=== PATIENT | female | born 1950 | race Asian ===

== ENCOUNTER 2016-09-01 13:01 | Inpatient (IN) | payer MEDICAID ==
[~2016-09-01] VITALS: Ht 157.5 cm; Wt 58.1 kg
[2016-09-01 13:02] VITALS: BP 104/64; PULSE 67; RESP 18; TEMP 97.1; O2SAT 98
--- NOTE | 2016-09-01 13:04 | NUR ---
Patient triaged and placed in waiting room. VSS and patient appears in no acute distress at this time. Accompanied by FAMILY, awaiting available bed, and MD notified of need for MSE.
--- NOTE | 2016-09-01 13:32 | NUR ---
BROUGHT BACK TO BED #7 AND REPORT GIVEN TO NURSE
--- NOTE | 2016-09-01 13:52 | NUR ---
Dr. Vicente at bedside for evaluation
--- NOTE | 2016-09-01 13:55 | NUR ---
PT brought to ED with chief complaint of dizziness. PT states she feels light headed, and had three syncope episodes this morning. Reports frequent episodes of sweating. Denies chest pain. Denies N/V. States she feels bloated. Daughter at bedside. Will continue to monitor.
[2016-09-01] MEDS ORDERED: NACL 0.9% 1,000 ML IV ONE (14:00)
[2016-09-01 14:15] LABS: BASOPHILS # (AUTO) 0.1 K/uL (0.0-0.2); BASOPHILS % (AUTO) 0.7 % (0.0-2.0); EOSINOPHILS % (AUTO) 0.2 % (0.0-4.0); HEMATOCRIT 41.8 % (36-48); HEMOGLOBIN 13.9 g/dL (12.0-16.0); LYMPHOCYTES # (AUTO) 1.1 K/uL (1.0-5.5); LYMPHOCYTES % (AUTO) 12.7 % (20.5-51.5); MEAN CORPUSCULAR HEMOGLOBIN 29 pg (27-31); MEAN CORPUSCULAR HGB CONC 33 % (32-36); MEAN CORPUSCULAR VOLUME 88 fL (79.0-98.0); MONOCYTES # (AUTO) 0.4 K/uL (0.0-1.0); MONOCYTES % (AUTO) 4.1 % (1.7-9.3); NEUTROPHILS # (AUTO) 7.1 K/uL (1.8-7.7); NEUTROPHILS % (AUTO) 82.3 % (40.0-70.0); PLATELET COUNT (AUTO) 198 K/uL (130-430); RED BLOOD CELL COUNT(AUTO) 4.78 MIL/uL (4.2-6.2); RED CELL DISTRIBUTION WIDTH 12.3 % (9.0-15.0); WHITE BLOOD COUNT (AUTO) 8.7 K/uL (4.8-10.8)
[2016-09-01 14:21] LABS: CALCIUM 8.8 mg/dL (8.4-11.0); CREATININE 0.98 mg/dL (0.55-1.30)
[2016-09-01 14:25] LABS: PROTHROMBIN TIME 10.7 SECS (9.5-12.5)
[2016-09-01 14:26] LABS: ALBUMIN 3.7 g/dL (3.4-4.8); TOTAL BILIRUBIN 0.6 mg/dL (0.0-1.0); TOTAL PROTEIN, SERUM 7.1 g/dL (6.4-8.3)
--- NOTE | 2016-09-01 14:46 | NUR ---
Medicated per MD orders. IVF infusing with no s/s of infiltration at this time. Will cont to monitor
--- NOTE | 2016-09-01 14:48 | NUR ---
Medication reconciliation completed with information provided by daughter. Pt does not take any medication, only vitamins occasionally.
--- NOTE | 2016-09-01 15:30 | NUR ---
PT resting quietly in bed. Does not appear in acute distress. Daughter at bedside. Will continue to monitor.
--- NOTE | 2016-09-01 16:20 | NUR ---
Meal tray delivered. Pt sitting up in bed, eating independently.
[2016-09-01] MEDS ORDERED: ASPIRIN 81 MG TAB.CHEW PO ONE (16:30)
--- NOTE | 2016-09-01 16:57 | NUR ---
Medication administered. PT tolerated well. Will continue to monitor
[2016-09-01] MEDS ORDERED: NACL 0.9% 1,000 ML IV SCH (17:15)
--- NOTE | 2016-09-01 17:21 | NUR ---
Belongings list compiled
--- NOTE | 2016-09-01 17:30 | NUR ---
Patient will be admitted to [facility]. Admitted to Telemetry unit. Will go to room 131B. Belongings list completed. Summary report printed. Report given to Mercedez JANSEN at bedside. Transfer to Telemetry via ACLS protocol. Licensed nurse present. IV present no signs or symptoms of infiltration.
--- NOTE | 2016-09-01 17:45 | NUR ---
ADMIT NOTE Received pt from ER to the floor with a diagnosis of NEAR SYNCOPE. Admission process initiated. patient oriented to pain management, safety and call light-teach back done.
[2016-09-01 17:47] LABS: THYROID STIMULATING HORMONE 1.21 uIu/mL (0.34-4.82)
[2016-09-01 18:03] VITALS: BP 136/52; PULSE 63; RESP 18; TEMP 98.2; O2SAT 98
--- NOTE | 2016-09-01 18:09 | NUR ---
Consult was called Re:Near Syncope spoke with Tenisha from Dr Rand up .
--- NOTE | 2016-09-01 19:00 | NUR ---
NOTE PT'S ADMISSION ASSESSMENT WAS COMPLETED AT THIS TIME. IVF'S INFUSING WELL THROUGH LEFT HAND IV SITE. PT WAS ORIENTED TO NURSING PROCEDURES AND ROUTINES. PT'S DAUGHTER AT BEDSIDE - SPEAKS [place] AND TRANSLATED FOR PT AND RN AT THIS TIME. NO NEEDS NOTED AT THIS TIME. CALL LIGHT WITHIN REACH. NO NEEDS NOTED AT THIS TIME. PT'S DAUGHTER AND SON-IN-LAW AT BEDSIDE AT THIS TIME. NO PAIN/DISCOMFORT OR SOB/RESP DISTRESS NOTED.
[2016-09-01 19:45] VITALS: BP 123/53; PULSE 60; RESP 16; TEMP 97.8; O2SAT 98
--- NOTE | 2016-09-01 19:45 | NUR ---
INITIAL NOTES: PT IS ALERT AND ORIENTED , KOREAN SPEAKING , DAUGHTER AT BEDSIDE ; VITALS ARE STABLE ; DENIED ANY PAIN OR DISCOMFORT ; PER DAUGHTER PT IS NOT ON ANY PRESCRIBED MEDICATION ; ALSO DAUGHTER SATED PT IS PREDIABETIC , BUT NOT CHECKING ANY BS OR MEDICATION AT HOME . WILL NOTIFY MD LATER ; DAUGHTER STATED PT GET BLOATING ON HER STOMACH SOME TIMES ; AT PRESENT DENIED ANY BLOATING , N/ V, PAIN OR DIZZINESS ; INSTRUCTED PT TO CALL FOR ASSISTANCE ; BED IN LOW AND LOCK POSITION ; CALL ALFARO IN REACH ; IV ON THE LEFT FA 20 G; IV FLUID INFUSING WELL ; NO S/S OF ANY INFECTION OR INFILTRATION NOTED ; TELEMONITOR RUNNING SR ; WILL CONTINUE TO MONITOR PT .
--- NOTE | 2016-09-01 22:15 | NUR ---
MD ROUNDS: DR CHIQUITA Bonilla,ASTER ROUNDS ,TALKED WITH DAUGHTER ; WILL CHECK FOR NEW ORDERS .INFORMED MD THAT PT IS PREDIABETIC PER DAUGHTER ; MD ASKED TO CHECK PTS BS ; BS 103 , NOTIFIED MD ; STATED HE WILL ORDER ACCU CHECK AND SLIDING SCALE AND LABS .
[2016-09-01] MEDS ORDERED: INSULIN REGULAR, HUMAN 100 UNITS/ML, 10 ML VIAL (novoLIN R) SUBCUT PRN (22:30)
[2016-09-01] MEDS ORDERED: DEXTROSE 50% JECT 50 ML DISP.SYRIN IVP PRN (22:30)
--- NOTE | 2016-09-01 22:40 | NUR ---
RN NOTES; TALKED WITH DAUGHTER AND EXPLAINED TO HER THAT PT WILL BE HAVING US ABDOMEN AND ECHO IN THE MORNING , FOR MYKEL US OF THE ABDOMEN SHE SHOULD NOT EAT OT DRINK ANYTHING AFTER MID NIGHT . DAUGHTER EXPLAINED TO THE PT .
[2016-09-01 23:54] VITALS: BP 124/62; PULSE 60; RESP 16; TEMP 97.6; O2SAT 94
--- NOTE | 2016-09-02 | NUR ---
RN ROUNDS: PT IS COMFORTABLE ; AWAKE , REMINDED PT NOT TO EAT OR DRINK ANYTHING UNTIL THE TEST IN THE MORNING ; REMOVED WATER FROM BEDSIDE .
--- NOTE | 2016-09-02 02:00 | NUR ---
RN ROUNDS: PT IS SLEEPING, NOT IN ANY ACUTE DISTRESS; WILL CONTINUE TO MONITOR.
[2016-09-02 04:10] VITALS: BP 123/61; PULSE 60; RESP 16; TEMP 97.6; O2SAT 96
--- NOTE | 2016-09-02 04:30 | NUR ---
RN ROUNDS: PT IS SLEEPING , NOT IN ANY ACUTE DISTRESS; WILL CONTINUE TO MONITOR
--- NOTE | 2016-09-02 06:00 | NUR ---
BS: BS 106, NO INSULIN COVERAGE NEEDED ; PT IS COMFORTABLE; ASSISTED PT TO RESTROOM , PT VOIDED WELL AND ASSISTED PT BACK TO BED .PT IS NPO FOR US OF THE ABDOMEN
[2016-09-02 06:21] LABS: BASOPHILS % (AUTO) 0.3 % (0.0-2.0); EOSINOPHILS # (AUTO) 0.1 K/uL (0.0-0.4); EOSINOPHILS % (AUTO) 1.3 % (0.0-4.0); HEMATOCRIT 34.5 % (36-48); HEMOGLOBIN 11.9 g/dL (12.0-16.0); LYMPHOCYTES # (AUTO) 2.3 K/uL (1.0-5.5); LYMPHOCYTES % (AUTO) 34.9 % (20.5-51.5); MEAN CORPUSCULAR HEMOGLOBIN 30 pg (27-31); MEAN CORPUSCULAR HGB CONC 34 % (32-36); MEAN CORPUSCULAR VOLUME 87 fL (79.0-98.0); MONOCYTES # (AUTO) 0.4 K/uL (0.0-1.0); MONOCYTES % (AUTO) 5.5 % (1.7-9.3); NEUTROPHILS # (AUTO) 3.8 K/uL (1.8-7.7); PLATELET COUNT (AUTO) 158 K/uL (130-430); RED BLOOD CELL COUNT(AUTO) 3.96 MIL/uL (4.2-6.2); RED CELL DISTRIBUTION WIDTH 12.4 % (9.0-15.0); WHITE BLOOD COUNT (AUTO) 6.6 K/uL (4.8-10.8)
--- NOTE | 2016-09-02 06:53 | NUR ---
CLOSING NOTES: PT IS SLEEPING COMFORTABLY; NOT IN ANY ACUTE DISTRESS; NO SIGNIFICANT CHANGES IN THE CONDITION ; WILL CONTINUE TO MONITOR AND WILL ENDORSE TO NEXT SHIFT NURSE. PT IS NPO FOR US ABDOMEN .
[2016-09-02 07:29] LABS: POTASSIUM 3.4 mmol/L (3.5-5.1)
[2016-09-02 07:30] LABS: CALCIUM 8.2 mg/dL (8.4-11.0); CREATININE 0.74 mg/dL (0.55-1.30); TOTAL BILIRUBIN 0.7 mg/dL (0.0-1.0)
[2016-09-02 07:31] LABS: ALBUMIN 3.1 g/dL (3.4-4.8)
[2016-09-02 08:00] VITALS: BP 141/68; PULSE 81; RESP 16; TEMP 97.9; O2SAT 98
--- NOTE | 2016-09-02 08:00 | NUR ---
PATIENT AT REST, A/OX4, MANDARIN SPEAKING. SR ON MONITOR, V/S STABLE. IV ON RIGHT ARM, #22. ABLE TO AMBULATE WITH ASSIST. CALL LIGHT IN PLACE, BED LOCKED AND AT LOWEST POSITION, INSTRUCTED PATIENT AND PATIENT'S DAUGHTER TO USE CALL LIGHT FOR NEEDS. WILL CONTINUE TO MONITOR.
[2016-09-02 08:05] LABS: ERYTHROCYTE SEDIMENTATION RATE 13 MM/HR (0-20)
--- NOTE | 2016-09-02 10:00 | NUR ---
PATIENT IS RESTING, NO SIGNS OF DISTRESS NOTED.
[2016-09-02] MEDS ORDERED: POTASSIUM CHLORIDE 20 MEQ TAB.PRT.SR PO ONE (11:45)
--- NOTE | 2016-09-02 12:00 | NUR ---
PATIENT IS HAVING 2D ECHO AT THIS TIME. SR ON MONITOR, NO SIGNS OF DISTRESS NOTED.
[2016-09-02 12:12] VITALS: BP 136/71; PULSE 64; RESP 15; TEMP 97.8; O2SAT 96
--- NOTE | 2016-09-02 14:10 | NUR ---
AMA: Patient does not wish to proceed with medical care recommended by DR. PORRAS. Patient given information related to possible complications, up to and including , which could occur as a result of leaving hospital at this time. Patient verbalizes understanding of risks involved leaving against medical advice. Patient has signed AMA form.
[2016-09-05 03:06] LABS: FOLATE (FOLIC ACID) 13.2 ng/mL (>3.0)
[2016-09-05 13:27] LABS: HEMOGLOBIN A1C 6.3 % (4.8-5.6)
== END 2016-09-02 14:10 | disposition left against medical advice (07) | DRG 204 ==
LOC: SED 13:01 → STU 17:06
PROVIDERS: ADMIT Internal Medicine; ATTEND Internal Medicine
DX: R55 Syncope and collapse (principal); E83.41 Hypermagnesemia; I49.8 Other specified cardiac arrhythmias; E87.6 Hypokalemia; Z53.21 Procedure and treatment not carried out due to patient leaving prior to being seen by health care provider; I51.7 Cardiomegaly; Z83.3 Family history of diabetes mellitus
CPT/HCPCS: 36415; 70450-TC; 71010; 76700-TC; 80053; 80061; 82306; 82607; 82746; 82962; 83036; 83690-TC; 83735-TC; 84443-TC; 84484; 85025; 85610-TC; 85651-TC; 85730-TC; 93005; 93306; 96360; 99285; J7030